=== PATIENT | male | born 1945 | race Two or more races ===

== ENCOUNTER 2022-12-11 09:59 | Inpatient (IN) | payer MEDICARE, OTHER ==
[~2022-12-11] VITALS: Ht 175.3 cm; Wt 72.7 kg
[2022-12-11 10:31] LABS: Basophils # (auto) 0.1 10 ^3/uL (0-0.2); Hemoglobin 14.2 g/dL (13.5-17.5); Mean Corpuscular Volume 96.2 fL (80.0-100.0); Monocytes # (auto) 0.5 10 ^3/uL (0-1.3); Red Blood Cells 4.47 10^6/uL (4.5-5.90); White Blood Cell 7.4 10^3/uL (4.4-10.8)
[2022-12-11 10:33] LABS: Eosinophils # (auto) 0.7 10 ^3/uL (0-0.8); Eosinophils % (auto) 8.8 % (0.0-7.0); Lymphocytes # (auto) 1.6 10 ^3/uL (0.4-5.4); Lymphocytes % (auto) 21.4 % (10.0-50.0); Mean Corpuscular Hemoglobin 31.7 pg (28.0-32.0); Monocytes % (auto) 6.1 % (0.0-12.0); Neutrophils # (auto) 4.6 10 ^3/uL (1.6-8.6); Neutrophils % (auto) 62.7 % (37.0-80.0); Red Cell Distribution Width 15.1 % (11.8-14.3)
[2022-12-11 10:45] LABS: Alanine Aminotransferase 24 U/L (7-40); Albumin 2.9 g/dL (3.2-4.8); Alkaline Phosphatase 105 U/L (46-116); Anion Gap 5.3 (5-15); Aspartate Aminotransferase 37 U/L (13-40); BUN/Creatinine Ratio 14.1 (10.0-20.0); Bilirubin, Total 0.8 mg/dL (0.2-1.0); Blood Urea Nitrogen 18 mg/dL (9-23); Calcium 8.5 mg/dL (8.5-10.1); Carbon Dioxide 26.7 mmol/L (20-30); Chloride 100 mmol/L (98-107); Glucose 151 mg/dL (74-106); Potassium 4.9 mmol/L (3.5-5.1); Sodium 132 mmol/L (136-145); Total Protein 6.8 g/dL (5.7-8.2)
[2022-12-11] MEDS ORDERED: SODIUM CHLORIDE 0.9% 1,000 ML IV ONE (10:45)
[2022-12-11] MEDS ORDERED: IOHEXOL 300 MG/ML 100ML BOTTLE IJ ONE (11:01)
[2022-12-11] MEDS ORDERED: CLOPIDOGREL BISULFATE 75 MG TAB PO ONE (12:15)
[2022-12-11] MEDS ORDERED: SODIUM CHLORIDE 0.9% 1,000 ML IV SCH (13:00)
[2022-12-11] MEDS ORDERED: HYDROcodone-ACET 5/325MG TAB PO PRN (13:00)
[2022-12-11] MEDS ORDERED: ACETAMINOPHEN 325 MG TAB PO PRN (13:00)
[2022-12-11] MEDS ORDERED: ONDANSETRON HCL 4 MG/2 ML VIAL IV PRN (13:00)
[2022-12-11] MEDS ORDERED: DOCUSATE SOD 100 MG CAP PO PRN (13:00)
[2022-12-11] MEDS ORDERED: IOHEXOL 350 MG/ML 100ML IJ ONE (13:09)
[2022-12-11] MEDS ORDERED: MORPHINE SULFATE INJ 2 MG/ml SYRG IV PRN ×2 (14:00→15:45)
[2022-12-11] MEDS ORDERED: NITROGLYCERIN 0.4 MG SL TAB SL PRN ×2 (14:00→15:45)
[2022-12-11] MEDS ORDERED: AZITHROMYCIN 500MG/ 250ML 250 ML IV ONE (15:00)
[2022-12-11 15:08] VITALS: PULSE 120; RESP 25; O2SAT 96
[2022-12-11 16:07] LABS: Triglycerides 153 mg/dL (< 150)
[2022-12-11 16:08] LABS: LDL Cholesterol 113 mg/dL (< 100)
[2022-12-11 16:09] LABS: Cholesterol 161 mg/dL (< 200); HDL Cholesterol 26 mg/dL (40-59)
[2022-12-11 16:39] LABS: Urine Bacteria NONE SEEN /hpf (None Seen); Urine Blood Negative /uL (Negative); Urine Clarity Clear (Clear); Urine Color Yellow (Yellow); Urine Protein, UAD TRACE (Negative); Urine Specific Gravity 1.018 (1.001-1.035); Urine WBC 1 /hpf (0 - 3)
[2022-12-11] MEDS: D5W/SOD CHL 0.45% 1,000 ML IV SCH (16:53)
[2022-12-11 19:30] VITALS: PULSE 110; RESP 20; TEMP 98.4; O2SAT 95
[2022-12-11] MEDS ORDERED: ATORVASTATIN 20 MG TAB PO SCH (22:00)
[2022-12-11] MEDS: PIPERACILLIN-TAZOB 3.375GM 100 ML IV SCH (22:19)
[2022-12-11 22:28] LABS: Free T4 (Free Thyroxine) 1.58 ng/dL (0.89-1.76)
[2022-12-11 22:29] LABS: Folate (Folic Acid) 13.91 ng/mL (>5.38)
[2022-12-12 05:54] LABS: Basophils # (auto) 0.1 10 ^3/uL (0-0.2); Basophils % (auto) 1.2 % (0.0-2.0); Eosinophils # (auto) 0.7 10 ^3/uL (0-0.8); Eosinophils % (auto) 9.9 % (0.0-7.0); Hematocrit 38.7 % (41.0-53.0); Lymphocytes # (auto) 1.4 10 ^3/uL (0.4-5.4); Lymphocytes % (auto) 20.9 % (10.0-50.0); Mean Corpuscular Hemoglobin 32.2 pg (28.0-32.0); Mean Corpuscular Hgb Conc. 33.6 g/dL (32.0-36.0); Mean Corpuscular Volume 96.1 fL (80.0-100.0); Monocytes # (auto) 0.6 10 ^3/uL (0-1.3); Monocytes % (auto) 8.9 % (0.0-12.0); Neutrophils # (auto) 3.9 10 ^3/uL (1.6-8.6); Neutrophils % (auto) 59.1 % (37.0-80.0); Nucleated Red Blood Cells % 0.1 %; Red Blood Cells 4.03 10^6/uL (4.5-5.90); Red Cell Distribution Width 15.5 % (11.8-14.3); White Blood Cell 6.6 10^3/uL (4.4-10.8)
[2022-12-12 06:33] LABS: Folate (Folic Acid) 10.21 ng/mL (>5.38)
[2022-12-12 06:35] LABS: Alanine Aminotransferase 18 U/L (7-40); Albumin 2.9 g/dL (3.2-4.8); Alkaline Phosphatase 84 U/L (46-116); Anion Gap 6.2 (5-15); Aspartate Aminotransferase 41 U/L (13-40); BUN/Creatinine Ratio 10.9 (10.0-20.0); Blood Urea Nitrogen 11 mg/dL (9-23); Calcium 8.2 mg/dL (8.5-10.1); Carbon Dioxide 23.8 mmol/L (20-30); Chloride 102 mmol/L (98-107); Glucose 118 mg/dL (74-106); Potassium 3.8 mmol/L (3.5-5.1); Sodium 132 mmol/L (136-145)
[2022-12-12 06:36] LABS: Bilirubin, Total 0.6 mg/dL (0.2-1.0); Total Protein 6.3 g/dL (5.7-8.2)
[2022-12-12] MEDS: PIPERACILLIN-TAZOB 3.375GM 100 ML IV SCH ×2 (06:41→10:03)
[2022-12-12 07:53] VITALS: BP 121/75; PULSE 101; RESP 21; O2SAT 95
[2022-12-12] MEDS ORDERED: PANTOPRAZOLE 40 MG/10 ML VIAL INJ IV SCH (10:00)
[2022-12-12] MEDS ORDERED: MULTIPLE VITAMIN TAB PO SCH (10:00)
[2022-12-12] MEDS ORDERED: ASPirin 81 mg TAB PO SCH (10:00)
[2022-12-12] MEDS ORDERED: ENOXAPARIN SOD 40 MG/0.4 ML SYRINGE SC SCH (10:00)
[2022-12-12] MEDS ORDERED: AZITHROMYCIN 500MG/ 250ML 250 ML IV SCH (10:00)
[2022-12-12] MEDS: D5W/SOD CHL 0.45% 1,000 ML IV SCH (10:08)
[2022-12-12] MEDS ORDERED: METO25TA93 PO (12:25)
[2022-12-12] MEDS ORDERED: ATOR20TA50 PO (12:25)
[2022-12-12] MEDS ORDERED: ASPI-325 PO (12:25)
[2022-12-12] MEDS ORDERED: DOXY-286 PO (12:25)
== END 2022-12-12 18:13 | disposition hospice, home (50) | DRG 67 ==
LOC: ER 09:59 → OVERFLOW 13:52 → TELE 15:50
PROVIDERS: ADMIT Family Medicine; ATTEND Family Medicine
DX: I65.21 Occlusion and stenosis of right carotid artery (principal); J18.9 Pneumonia, unspecified organism; E87.1 Hypo-osmolality and hyponatremia; I24.9 Acute ischemic heart disease, unspecified; J90 Pleural effusion, not elsewhere classified; J98.11 Atelectasis; E88.09 Other disorders of plasma-protein metabolism, not elsewhere classified; Z96.659 Presence of unspecified artificial knee joint; F17.200 Nicotine dependence, unspecified, uncomplicated; I10 Essential (primary) hypertension; I25.2 Old myocardial infarction; Z79.82 Long term (current) use of aspirin; Z79.899 Other long term (current) drug therapy; Z86.73 Personal history of transient ischemic attack (TIA), and cerebral infarction without residual deficits; I65.22 Occlusion and stenosis of left carotid artery
CPT/HCPCS: 36415; 70450; 70496; 70551; 71045; 71260; 74177; 80053; 80061; 81001; 82607; 82746; 83036; 84439; 84443; 84484; 85025; 92610; 93005; 96360; 99291; C9113; G0378; J2543